=== PATIENT | female | born 1945 | race Caucasian/White ===

== ENCOUNTER → 2017-06-04 | Outpatient (CLI) | payer MEDICARE ==
[~2017-06-04] MED LIST: ACETAMINOPHEN650 M1 PO; ALDACTONE25 MG PO; BISACODYL EC5 M1 PO; CEFACLOR250 MG PO; COUMADIN PO; COUMADIN1 MG PO; DUONEB 2.5-0.5 M3 ML NEB; ESCITALOPRAM OX10 MG PO; FISH OIL 1,2001 EAC1 PO; FISH OIL300 MG; HCTZ PO; K-DUR20 ME1 PO; LASIX PO; LEVAQUIN250 MG PO; LEXAPRO PO; LISINOPRIL10 MG PO; LOPRESSOR PO; METOLAZONE2.5 MG PO; METOPROLOL TAR100 MG PO; MULTI VITAMIN1 EACH PO; NORVASC PO; OSTEO BI-FLEX1 EAC1 PO; PAIN RELIEF325 M1 PO; PREDNISONE PO; SIMVASTATIN40 MG PO; VIBRAMYCIN100 M1 PO; ZESTORETIC 10/11 TAB PO; ZOCOR PO
--- NOTE | ~2017-06-04 | US17 ---
[facility] A Service [facility] RADIOLOGY TEXT RESULTS PATIENT: DARIEN CARMICHAEL LOCATION: [facility] : 49 UNIT #: [id number] AGE: [address]: Jesus Gray APRN SEX: F ORDER DR: [id number] [facility] [address] [place], [place] [address] [id number] O MR#: [id number] Acc #: [id number] NAME: DARIEN CARMICHAEL : 1945 SEX: F STUDY DATE/TIME: 06/04/2017 15:03 UNIT: [facility] ROOM: STUDY DESCRIPTION: US Breast Bilateral Attending Physician: Jesus Gray A.P.R.N. Referring Physician: Jesus Gray A.P.R.N. Ordering Physician: Jesus Gray A.P.R.N. Primary Care Physician: Christoph Rizzo M.D. MEDICAL IMAGING REPORT This report is preliminary unless electronic signature is present EXAM Bilateral breast ultrasound INDICATIONS Palpable abnormalities in the right and left breast for the past 2 weeks. PROCEDURE Blankenship-scale imaging of the right and left breast in the area of palpable concern. COMPARISON Concurrently for diagnostic mammogram. FINDINGS/IMPRESSION Refer to separately-dictated diagnostic mammogram for workup, findings and recommendations. Patients over the age of 40 are entered into a reminder system with target due date for the next mammogram. A result letter will also be sent to the patient. BIRADS: 1 Negative Dictated by... Rusty Kee M.D. THIS IS AN ELECTRONICALLY VERIFIED REPORT Rusty Kee M.D. at 06/05/2017 7:13 AM EED/alonso TD: 06/04/2017 20:28 [facility] A Service [facility] RADIOLOGY TEXT RESULTS PATIENT: DARIEN CARMICHAEL LOCATION: [facility] : 49 UNIT #: [id number] AGE: [address]: Jesus Gray APRN SEX: F ORDER DR: JOB #: [id number] MEDICAL IMAGING REPORT Page 1 of 1 COPY
--- NOTE | ~2017-06-04 | MY26 ---
[facility] A Service [facility] RADIOLOGY TEXT RESULTS PATIENT: DARIEN CARMICHAEL LOCATION: [facility] : 49 UNIT #: [id number] AGE: [address]: Jesus Gray APRN SEX: F ORDER DR: [id number] [facility] [address] [place], [place] [address] [id number] O MR#: [id number] Acc #: [id number] NAME: DARIEN CARMICHAEL : 1945 SEX: F STUDY DATE/TIME: 06/04/2017 14:46 UNIT: [facility] ROOM: STUDY DESCRIPTION: [facility] DIAGNOSTIC W/ CAD BILAT Attending Physician: Jesus Gray A.P.R.N. Referring Physician: Jesus Gray A.P.R.N. Ordering Physician: Jesus Gray A.P.R.N. Primary Care Physician: Christoph Rizzo M.D. MEDICAL IMAGING REPORT This report is preliminary unless electronic signature is present EXAM Bilateral diagnostic mammogram INDICATIONS Palpable abnormalities in the right and left breast for the past 2 weeks. PROCEDURE Bilateral CC, MLO and true lateral views obtained on digital mammography unit. FDA-approved CAD device utilized. COMPARISON 07/14/2014 FINDINGS Breasts are predominately fat replaced. There is no dominant mass or suspicious calcification. Targeted ultrasound evaluation of the right and left breast in the area of palpable concern shows no sonographic abnormality. IMPRESSION Negative bilateral digital diagnostic mammogram and targeted bilateral breast ultrasound. Recommend continued clinical followup. Patients over the age of 40 are entered into a reminder system with target due date for the next mammogram. A result letter will also be sent to the patient. BIRADS: 1 Negative Dictated by... [facility] A Service [facility] RADIOLOGY TEXT RESULTS PATIENT: DARIEN CARMICHAEL LOCATION: [facility] : 49 UNIT #: [id number] AGE: [address]: Jesus Gray APRN SEX: F ORDER DR: Rusty E. Vidhya, M.D. THIS IS AN ELECTRONICALLY VERIFIED REPORT Rusty Kee M.D. at 06/05/2017 7:13 AM JAE/alonso TD: 06/04/2017 20:25 JOB #: [id number] MEDICAL IMAGING REPORT Page 1 of 1 COPY
== END | disposition home or self-care (01) ==
LOC: CMAM 14:26
DX: N63 Unspecified lump in breast (principal); N64.4 Mastodynia
CPT/HCPCS: 76641; G0204